=== PATIENT | male | born 1990 | race Hispanic/Latino ===

== ENCOUNTER 2021-04-03 09:16 | Emergency (ER) | payer SELFPAY ==
[~2021-04-03] VITALS: Ht 165.1 cm; Wt 83.9 kg
[2021-04-03] MEDS ORDERED: KETOROLAC TROMETHAMINE 30 MG/ML VIAL IM ONE (09:37)
[2021-04-03] MEDS ORDERED: GUAIFENESIN 600MG/DEXTROMETHORPHAN 30MG TABSR PO SCH (09:45)
[2021-04-03] MEDS ORDERED: ONDANSETRON ODT4 MG PO (10:32)
[2021-04-03 11:07] VITALS: BP 134/65
== END 2021-04-03 11:13 | disposition home or self-care (01) ==
LOC: ER 09:25
DX: U07.1 COVID-19 (principal); R50.9 Fever, unspecified; R05.9 Cough, unspecified
CPT/HCPCS: 71045; 99283; J1885